=== PATIENT | male | born 1955 | race Caucasian/White ===

== ENCOUNTER → 2023-09-11 10:00 | Outpatient (REF) | payer OTHER, SELFPAY | LOC: RAD 10:00 | PROVIDERS: ATTENDING PHYSICIAN Surgery; FAMILY PHYSICIAN Nurse Practitioner Family | DX: N20.0 Calculus of kidney (principal) | CPT/HCPCS: 76770 ==

== ENCOUNTER 2023-09-27 17:40 | Emergency (ER) | payer OTHER, SELFPAY ==
[2023-09-27 17:44] VITALS: BP 158/72
[2023-09-27 19:05] VITALS: BMI 31.5
[2023-09-27 19:10] VITALS: BP 159/84
--- NOTE | 2023-09-27 19:14 | ED.GENMED ---
History of Present Illness
<Matty Adan PA-C - Last Filed: 09/28/23 10:20>
General
Chief Complaint: Head Injury
Source: patient
Time Seen by Provider: 09/27/23 18:08
Travel History
Have you had any contact with someone who has COVID-19?: No
Do you have any symptoms of coronavirus? Fever > 100 degrees, chills, cough, shortness of breath, sore throat, loss of taste or smell, muscle aches, or headache?: No
History of Present Illness
History of Present Illness:
67-year-old male with past medical history of hypertension and diabetes, on Plavix, presenting to the emergency department for evaluation of he had an accidental trip and fall causing him to strike his head onto the ground where there was a tree
stump, did not lose consciousness but felt sudden sharp shooting pain into his bilateral forearms and states was having trouble gripping with both of his hands for about 1 to 2 minutes and also felt sharp shooting pain in his left leg. Patient
states the leg pain and discomfort has since resolved however he still has an abnormal sensation to his bilateral hands. Patient's tetanus is up-to-date. No other injuries were sustained. Denies any current headaches. He does state that symptoms
do seem to be improving since arriving to the ER.
Past History
<Matty Adan PA-C - Last Filed: 09/28/23 10:20>
Past History
ED Past Medical History: CAD and NIDDM
ED Past Surgical History: Cardiac and Orthopedic
Social History
Tobacco: Non-smoker
Alcohol: Occasional
Drug: None
Personal:
Living: with family
Review of Systems
<Matty Adan PA-C - Last Filed: 09/28/23 10:20>
Review of Systems
All Other Systems: ROS reviewed and negative except as documented in HPI and ROS
Phy Exam
<Matty Adan PA-C - Last Filed: 09/28/23 10:20>
Physical Exam
Physical Exam:
GENERAL: Alert , in no apparent distress
Head: Scattered abrasions over the forehead without any active bleeding
EYE: pupils equal and reactive, 3 mm bilateral, EOMI
NECK: Supple, c-collar immediately applied
ENT: o/p clr, mmm.
NEUROLOGICAL: Alert and oriented, no focal neuro deficits
SKIN: Warm and dry, skin intact.
MUSCULOSKELETAL: No edema, well perfused. Patient allows for full active and passive range of motion of bilateral upper and lower extremities. He reports sensation is grossly intact to light touch throughout. No focal tenderness to the extremities
PSYCH: Normal and appropriate interaction.
Scores
<Matty Adan PA-C - Last Filed: 09/28/23 10:20>
Heart Failure Risk
Heart Failure Risk Score: Not Applicable
Heart Score for Chest Pain Patients
STEMI patient?: Not applicable
Withdrawal Assessment of Alcohol
Withdrawal Assessment Completed?: Not applicable
Course
<Matty Adan PA-C - Last Filed: 09/28/23 10:20>
Orders/Labs/Results
Orders:
Orders
09/27/23 17:47
CT Head W/o Iv Contrast Urgent
Comment: on Plavix
Reason For Exam: head injury, pressure
09/27/23 17:57
CT Cervical Spine W/o Iv Contr Urgent
Comment: s/p head injury
Reason For Exam: arm tingling
09/27/23 20:16
MR Cervical Spine Without Urgent
Comment:
Reason For Exam: fall, weakness to b/l forearm/hands
Recent pill cam endoscopy?: No
09/27/23 21:52
Admit/Transfer Patient As Directed
Co-Sign Provider:
Level of Care: Observation services
Assign to:: Medical/Surgical
Physician / Group: Hospitalist
Diagnosis: Spinal cord contusion
Reason for Hospitalization: spinal cord contusion
Expected length of stay greater than two midnights?: Yes
ELOS- Estimated Length of Stay in days: 2
I certify the patient meets the requirements for IP care: Yes
09/27/23 21:59
Code Status As Directed
Resuscitation Status: Full Code
09/28/23 00:08
09/27/23 20:04
Vital Signs
Initial and Last Documented VS:
Initial Vital Signs
Temp Pulse Resp BP Pulse Ox
99.1 F 62 18 158/72 99
09/27/23 17:44 09/27/23 17:44 09/27/23 17:44 09/27/23 17:44 09/27/23 17:44
Last Documented Vital Signs
Temp Pulse Resp BP Pulse Ox
99.1 F 63 18 160/72 96
09/27/23 17:44 09/27/23 22:26 09/27/23 17:44 09/27/23 22:26 09/27/23 22:26
<Lee Hackett, DO - Last Filed: 09/27/23 22:38>
Orders/Labs/Results
Orders:
Orders
09/27/23 17:47
CT Head W/o Iv Contrast Urgent
Comment: on Plavix
Reason For Exam: head injury, pressure
09/27/23 17:57
CT Cervical Spine W/o Iv Contr Urgent
Comment: s/p head injury
Reason For Exam: arm tingling
09/27/23 20:16
MR Cervical Spine Without Urgent
Comment:
Reason For Exam: fall, weakness to b/l forearm/hands
Recent pill cam endoscopy?: No
09/27/23 21:52
Admit/Transfer Patient As Directed
Co-Sign Provider:
Level of Care: Observation services
Assign to:: Medical/Surgical
Physician / Group: Hospitalist
Diagnosis: Spinal cord contusion
Reason for Hospitalization: spinal cord contusion
Expected length of stay greater than two midnights?: Yes
ELOS- Estimated Length of Stay in days: 2
I certify the patient meets the requirements for IP care: Yes
09/27/23 21:59
Code Status As Directed
Resuscitation Status: Full Code
09/28/23 00:08
09/27/23 20:04
Vital Signs
Initial and Last Documented VS:
Initial Vital Signs
Temp Pulse Resp BP Pulse Ox
99.1 F 62 18 158/72 99
09/27/23 17:44 09/27/23 17:44 09/27/23 17:44 09/27/23 17:44 09/27/23 17:44
Last Documented Vital Signs
Temp Pulse Resp BP Pulse Ox
99.1 F 63 18 160/72 96
09/27/23 17:44 09/27/23 22:26 09/27/23 17:44 09/27/23 22:26 09/27/23 22:26
<Juancho Monte PA-C - Last Filed: 09/27/23 23:44>
Orders/Labs/Results
Orders:
Orders
09/27/23 17:47
CT Head W/o Iv Contrast Urgent
Comment: on Plavix
Reason For Exam: head injury, pressure
09/27/23 17:57
CT Cervical Spine W/o Iv Contr Urgent
Comment: s/p head injury
Reason For Exam: arm tingling
09/27/23 20:16
MR Cervical Spine Without Urgent
Comment:
Reason For Exam: fall, weakness to b/l forearm/hands
Recent pill cam endoscopy?: No
09/27/23 21:52
Admit/Transfer Patient As Directed
Co-Sign Provider:
Level of Care: Observation services
Assign to:: Medical/Surgical
Physician / Group: Hospitalist
Diagnosis: Spinal cord contusion
Reason for Hospitalization: spinal cord contusion
Expected length of stay greater than two midnights?: Yes
ELOS- Estimated Length of Stay in days: 2
I certify the patient meets the requirements for IP care: Yes
09/27/23 21:59
Code Status As Directed
Resuscitation Status: Full Code
09/28/23 00:08
09/27/23 20:04
Vital Signs
Initial and Last Documented VS:
Initial Vital Signs
Temp Pulse Resp BP Pulse Ox
99.1 F 62 18 158/72 99
09/27/23 17:44 09/27/23 17:44 09/27/23 17:44 09/27/23 17:44 09/27/23 17:44
Last Documented Vital Signs
Temp Pulse Resp BP Pulse Ox
99.1 F 63 18 160/72 96
09/27/23 17:44 09/27/23 22:26 09/27/23 17:44 09/27/23 22:26 09/27/23 22:26
<Matty Adan PA-C - Last Filed: 09/28/23 10:20>
MDM/Problems Addressed
Differential Diagnosis Includes:
C-spine fracture, intracranial bleeding, spinal cord contusion, disc herniation
MDM/Problems Addressed:
67-year-old male presenting the emergency department for evaluation of accidental trip and fall. Patient experienced what sounds like neuropathic pain following the fall. 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
having full range of motion but states he still feels odd when attempting to move his arms. No focal neurologic deficits on exam. Cervical collar was immediately applied. Contacted CT scan to obtain stat CT. Reassessment following
<Matty Adan PA-C - Last Filed: 09/28/23 10:20>
*Pulse Oximetry
Patient hypoxic: no
<Juancho Monte PA-C - Last Filed: 09/27/23 23:44>
*Critical Care Note
Total Time (30-74mins, 75-104mins- exclusive of procedures): Not Applicable
<Matty Adan PA-C - Last Filed: 09/28/23 10:20>
Patient Management
Discussion with other providers: Hospitalist and Standpipe Tender
Escalation/DeEscalation of care consider admission/obs:
Patient CT scan without any acute intracranial or cervical spine pathology however he still reports his bilateral forearms feel 'weird'. I contacted our neurosurgeon on-call, Dr. Sutton who shares concerns for central cord injury and recommends
an MRI. We contacted the nursing garbage collector supervisor who was able to get the fitness technician production cell leader to come into the hospital to perform the MRI. Neurosurgery is okay with patient staying at this facility. Hospitalist team was notified. They would prefer to
wait for MRI results prior to admitting which is certainly reasonable. Anticipate admission here.
<Juancho Monte PA-C - Last Filed: 09/27/23 23:44>
Update Note
Update Note:
MRI obtained showing central cord contusion. Case again reviewed w/ neurosurgery who recommend d/c. Pt stable at time of discharge
ED Attending Note
<Matty Adan PA-C - Last Filed: 09/28/23 10:20>
-
Portions of this chart may have been created with voice recognition software.� Occasional wrong word or��sound alike� substitutions may have occurred due to the inherent limitations of voice recognition software.
<Lee Hackett DO - Last Filed: 09/27/23 22:38>
ED Attending Note
Patient seen and examined by attending physician: Yes
I performed the substantive portion of visit, reviewed & personally made and approve the management plan that is documented in note by myself or CHU.: Yes
I performed a history and physical exam of patient and discussed management with resident, I reviewed resident's note and agree with documented findings and plan of care.: Yes
ED Attending Note:
I evaluated the patient at bedside at 10:15 PM after MRI report. The patient has been monitored throughout his stay in the ED. His symptoms now have resolved. At times however he reports some very minimal paresthesias in the bilateral radial
portion of the hand. However this continues to improve dramatically. He is eager to go home. MRI suggests minor cord contusion. Therefore I discussed case with Dr. Sutton. The patient will follow-up with Dr. Sutton this week.
Lesley okay with keeping him on the antiplatelets. I notified Dr. Malik and Dr. Corbin that we will cancel the admission.
Discharge Plan
Departure
Patient Disposition: Home (Routine Discharge)
Date of Disposition: 09/27/23
Time of Disposition: 22:14
Patient with high blood pressure during this ER visit?: Yes
Discharge Problem:
Contusion of cervical cord
Instructions: Paresthesia (DC)
Prescriptions:
No Action
aspirin 81 MG tablet,delayed release (DR/EC)
81 mg PO HS
losartan [Cozaar] 100 MG tablet
100 mg PO DAILY
coenzyme Q10 [Co Q-10] 300 MG capsule
300 mg PO DAILY
metoprolol tartrate 25 MG tablet
25 mg PO BID
Patient Comments:
this med started ONE week ago per pt.
omega-3 fatty acids-fish oil 1 EACH capsule
1 ea PO DAILY
atorvastatin 40 MG tablet
40 mg PO QPM Qty: 90 3RF
clopidogrel 75 MG tablet
75 mg PO DAILY Qty: 90 3RF
metformin 850 MG tablet
850 mg PO BID Qty: 0 0RF
Rx Instructions:
HOLD for 48 hours post cath- ok to resume on Thursday06/18/14 in AM
nitroglycerin 0.4 MG tablet, sublingual
0.4 mg sublingual [id number] PRN (Reason: chest pain) Qty: 30 2RF
ondansetron 4 mg Tablet,Disintegrating
4 mg PO TIDPRN PRN (Reason: nausea/vomiting) Qty: 14 0RF
oxycodone-acetaminophen [Percocet] 5-325 mg Tablet
1 tab PO Q6HPRN PRN (Reason: pain) Qty: 12 0RF
tamsulosin [Flomax] 0.4 mg Capsule
0.4 mg PO DAILY Qty: 7 0RF
Referrals:
Clarke Sutton DO [Active] - Follow up in 5-7 days
Ingris Metcalf CRNP [Family Provider] -
Activity Restrictions/Additional Instructions:
CT of the brain and cervical spine unremarkable. MRI shows 'a minor contusion along the right lateral margin of the cervical cord at C4-5 level'. I discussed case with Dr. Sutton�please follow-up with him this week. He indicated to me that he
will be able to see you this week. Call his office for appointment.
Interventions
Interventions:
*Risk Screen - Suicide Last Done: 09/27/23 19:10
*General Assessment Last Done: 09/27/23 19:10
*Neglect/Abuse Screening Last Done: 09/27/23 19:10
ED- Fall Risk Assessment Last Done: 09/27/23 22:40
*ED COVID-19 Vaccine History Last Done: 09/27/23 19:10
*Nursing Disposition Last Done: 09/27/23 22:40
ED- Neurological Assessment Last Done: 09/27/23 21:38
Discharge Date and Time
Discharge Date/Time: 09/27/23 22:40
Print Language: SLOVAK
--- NOTE | 2023-09-27 21:06 | HPS.HSE ---
Family Physician
-
Family Physician: ELENA Marin
Chief Complaint
-
Fall with head/neck trauma
History of Present Illness
67-year-old man had an accidental trip and fall causing him to strike his head onto the ground where there was a tree stump. He did not lose consciousness but felt sudden sharp shooting pain into his bilateral forearms and states was having trouble
gripping with both of his hands for about 1 to 2 minutes after the fall. He also felt sharp shooting pain in his left leg. In the ED, the leg pain and discomfort resolved, however the abnormal sensation to his bilateral hands continues. He
describes the sensation as 'electric tingles.' Patient's tetanus is up-to-date. No other injuries were sustained other than scratches on his forehead. He denies any current headaches. The CT in the ED showed:
Discogenic, uncinate, and facet degenerative changes are again demonstrated at multiple levels, with associated variable osseous central canal and neural foraminal narrowing, unchanged from prior examination.
There is no vertebral compression deformity.
No anterior or posterior listhesis.
No fracture.
No prevertebral soft tissue swelling.
Prominent calcification/ossification of the nuchal ligament.
No cervical mass or enlarged adenopathy.
Moderate bilateral carotid artery calcification.
The lung apices are clear.
Medical History
Past Medical History
Past Medical History: Reports Other
Additional Past Medical History:
CAD
NIDDM
essential HTN
Enlarged prostate
Cardiac stent
Orthopedic surgery
Past Surgical History: Reports Other
Additional Past Surgical History:
See above
Social History
Tobacco: Non-smoker
Alcohol: Occasional
Drug: None
Personal:
Living: With Family
Family History
Family History: Not pertinent
Allergies / Home Medications
Allergies reflects when Allergies were last updated in [facility].
Home Medications with original date entered in [facility]
Allergy/Medication List:
Allergies
Allergy/AdvReac Type Severity Reaction Status Date / Time
NKA - No Known Allergies Allergy Severe Unknown Uncoded 04/24/23 11:53
Home Medications
aspirin 81 mg tablet,delayed release 81 mg PO HS 06/06/14
coenzyme Q10 300 mg capsule (Co Q-10) 300 mg PO DAILY 06/06/14
losartan 100 mg tablet (Cozaar) 100 mg PO DAILY 06/06/14
metoprolol tartrate 25 mg tablet 25 mg PO BID 06/06/14
omega-3 fatty acids-fish oil 300 mg-1,000 mg capsule 1 ea PO DAILY 06/06/14
atorvastatin 40 mg tablet 40 mg PO QPM ##90 06/16/14
clopidogrel 75 mg tablet 75 mg PO DAILY ##90 06/16/14
metformin 850 mg tablet 850 mg PO BID ##0 06/16/14
nitroglycerin 0.4 mg sublingual tablet 0.4 mg sublingual [id number] PRN chest pain #30 tabs 06/16/14
ondansetron 4 mg disintegrating tablet 4 mg PO TIDPRN PRN nausea/vomiting #14 tabs 01/03/22
oxycodone-acetaminophen 5 mg-325 mg tablet (Percocet) 1 tab PO Q6HPRN PRN pain #12 tabs 01/03/22
tamsulosin 0.4 mg capsule (Flomax) 0.4 mg PO DAILY #7 caps 01/03/22
Review of Systems
-
History Source: Patient
A 12 point ROS was completed and negative except as noted: Yes
Physical Exam
Vital Signs
Vital Signs
Temp Pulse Resp BP Pulse Ox
99.1 F 65 18 159/84 96
09/27/23 17:44 09/27/23 19:10 09/27/23 17:44 09/27/23 19:10 09/27/23 19:10
Physical Exam
General: Well Developed, Well Nourished, No Apparent Distress, Comfortable, Conversant and Obese
HEENT: [place] Conjunctivae, Nose Appears Normal and Ears Appear Normal
Respiratory: Clear
Cardiac: S1/S2 and Regular Rhythm
GI: Soft, Non Tender and Non Distended
Musculoskeletal: No Clubbing, No Cyanosis and No Edema
Skin: Warm and Dry; No Rash or Jaundice
Neuro: Awake, Alert, Oriented and AO x 3
Psych: Calm
Laboratory Results
-
Labs pending.
Impression/Plan
-
IMPRESSION:
67 man who had a mechanical fall and hit his head and face on a tree stump. Bilateral neurological symptoms after the fall on both arms
Labs pending
MRI pending
PLAN:
1. bilateral 'electric tingle' on arms. Neuro-surgery recommends admit to , and requested MRI
MRI ordered
If MRI does not show a surgical emergency:
Review labs pending
Observe overnight
Neurosurgical consult tomorrow
If MRI shows surgical emergency, transfer out of ER to appropriate hospital
Otherwise continue current home meds
VCD for DVTp
Full code
[2023-09-27 22:26] VITALS: BP 160/72
== END 2023-09-27 22:40 | disposition home or self-care (01) ==
LOC: EMR 17:40
PROVIDERS: EMERGENCY PHYSICIAN Emergency Medicine; FAMILY PHYSICIAN Nurse Practitioner Family; REFERRING PHYSICIAN Internal Medicine Gastroenterology
DX: S09.90XA Unspecified injury of head, initial encounter (principal); W01.0XXA Fall on same level from slipping, tripping and stumbling without subsequent striking against object, initial encounter; I10 Essential (primary) hypertension; E11.9 Type 2 diabetes mellitus without complications; I25.10 Atherosclerotic heart disease of native coronary artery without angina pectoris; N40.0 Benign prostatic hyperplasia without lower urinary tract symptoms; Z79.02 Long term (current) use of antithrombotics/antiplatelets; Z79.84 Long term (current) use of oral hypoglycemic drugs; Z95.5 Presence of coronary angioplasty implant and graft
CPT/HCPCS: 99284; 70450; 72125; 72141